=== PATIENT | male | born 1960 | race Hispanic/Latino ===

== ENCOUNTER 2019-08-02 16:15 | Emergency (ER) | payer SELFPAY ==
[2019-08-02] MEDS ORDERED: Ibuprofen 200 MG TAB ONE (16:37)
== END 2019-08-02 16:41 | disposition home or self-care (01) ==
LOC: ERS 16:15
DX: T63.2X1A Toxic effect of venom of scorpion, accidental (unintentional), initial encounter (principal)
CPT/HCPCS: 99282